=== PATIENT | male | born 1980 | race Caucasian/White ===

== ENCOUNTER 2018-01-24 01:16 | Emergency (ER) | payer BC, OTHER ==
[~2018-01-24] VITALS: Ht 190.5 cm; Wt 130.5 kg
[2018-01-24 01:20] VITALS: BP 153/86
[2018-01-24] MEDS ORDERED: LIDOCAINE-MPF 1%, 5ML ONE (01:37)
[2018-01-24] MEDS ORDERED: DIPH,PERTUSS(ACELL),TET VAC/PF 0.5 ML IM-VACC ONE ×2 (01:37→02:00)
[2018-01-24] MEDS ORDERED: LIDOCAINE-MPF 1%, 5ML INFIL ONE (02:00)
[2018-01-24] MEDS ORDERED: BACITRACIN ZINC OINT 500U/GM, 0.9 GM ONE (02:10)
== END 2018-01-24 02:15 | disposition home or self-care (01) ==
LOC: ED 02:09
DX: S01.511A Laceration without foreign body of lip, initial encounter (principal); W18.30XA Fall on same level, unspecified, initial encounter; Y93.89 Activity, other specified; Y99.8 Other external cause status; Y92.89 Other specified places as the place of occurrence of the external cause
CPT/HCPCS: 12051; 90471; 90715